=== PATIENT | female | born 1980 | race Caucasian/White ===

== ENCOUNTER → 2020-02-17 13:33 | Outpatient (CLI) | payer OTHER, SELFPAY ==
--- NOTE | 2020-02-17 | DI.MRI.S_ITS ---
BREAST MRI OF BOTH BREASTS: 02/17/2020 CLINICAL: DCIS Breast lump. Comparison is made to exams dated: 02/06/2020 ultrasound biopsy, 02/04/2020 mammogram, 08/08/2017 mammogram, and 02/04/2020 ultrasound - [facility]. Gadolinium contrast calibrated to patient weight was injected. MRI images were obtained. Bilateral background breast enhancement is minimal. TECHNIQUE: The patient was placed prone in a dedicated breast imaging coil. Precontrast axial STIR and 3D FLASH without fat saturation sequences were obtained. Both before and after bolus injection of contrast, sequential 1-minute axial 3D FLASH with fat saturation sequences for 3 time points, with subtraction images and maximum intensity projections (MIP's) generated. Delayed sagittal FLASH images with fat saturation were also obtained. Computer-aided detection, including computer algorithm analysis of MRI image data for lesion detection and characterization, pharmacokinetic analysis, with further physician review for interpretation, was performed. FINDINGS: Image quality: Excellent. There is minimal background parenchymal enhancement. Right breast: A retropectoral saline implant is present. No abnormal mass or suspicious focus of non-mass enhancement is seen in the right breast. Left breast: A retropectoral saline implant is present. A 2.7 x 2.1 x 1.7 cm rim enhancing mass with spiculated margin is seen in the left breast at the 10:30 position approximately 5 cm from the nipple (image 127 of series 7) corresponding to the prior ultrasound biopsy with associated biopsy clip. A satellite lesion is seen approximately 6 mm medial and posterior to the mass measuring 1.3 x 0.7 x 1.0 cm with solid enhancement (image 129 of series 7) that was not definitely seen on prior ultrasound. An additional irregular enhancing mass is seen in the left breast at the 10 o'clock position middle depth approximately 4 cm from the nipple measuring 1.0 x 0.7 cm (image 131 of series 7), corresponding to the prior ultrasound biopsy with associated biopsy clip. There is a segmental linear branching non-mass enhancement throughout the superior medial quadrant of the left breast extending to the nipple (for example on image 130 of series 7). Miscellaneous: Bilateral axillary lymph nodes are not significantly enlarged by cross-sectional imaging size criteria. The largest left axillary lymph nodes measure up to 8 mm in short axis diameter. No enlarged internal mammary lymph node is seen. The included portions of the upper abdomen and anterior chest wall demonstrate no acute abnormality. IMPRESSION: KNOWN BIOPSY PROVEN MALIGNANCY 1. A spiculated mass in the left breast at the 10:30 position 5 cm from the nipple with rim enhancement measures 2.7 x 2.1 x 1.7 cm with and associated biopsy clip, consistent with the known biopsy-proven malignancy. 2. A possible satellite lesion or separate mass is seen in the left breast slightly posteromedial to the larger mass with solid enhancement, measuring 1.7 x 0.7 x 1.0 cm. 3. An irregular mass in the left breast at the 10 o'clock position 4 cm from the nipple with solid enhancement measures 1.0 x 0.7 cm corresponds to the 2nd biopsy-proven malignancy. 4. Segmental heterogeneous non mass enhancement is also seen throughout the remainder of the superior medial quadrant of the left breast extending to the nipple. 5. No significantly enlarged axillary lymph node or signs of metastatic disease are seen. BIRADS 6 COMMENT: The imaging literature indicates that a negative contrast breast MRI examination has a high sensitivity and a moderate specificity for detecting and excluding invasive carcinomas to a detection threshold of 3-5 mm; nonetheless, appropriate clinical and mammographic follow-up are recommended. MRI is not sensitive for detecting DCIS (ductal carcinoma in situ) and may not detect large invasive neoplasms that show only minimal enhancement such as mucinous carcinoma. If there are suspicious calcifications or clinically worrisome palpable masses, then biopsy should still be considered. Invasive neoplasms can be hidden by co-existent and benign enhancement caused by mastitis, hormone therapy effects, radiation therapy, , and recent biopsy or surgery. False positive examinations can occur in a number of circumstances, including breasts that have recently been subject to invasive procedures and those that contain atypical ductal hyperplasia, hormonally stimulated glandular tissue, fat necrosis, or radial scars. This exam was interpreted at Station ID: [id number]. Electronically Signed By: Dillon wheeler/rolando:02/18/2020 10:07:20 ACR BI-RADS Category 6: Known biopsy proven malignancy 3346F
== END ==
PROVIDERS: PCP Family Medicine; Referring Provider Family Medicine; Visit Provider Family Medicine
DX: D05.12 Intraductal carcinoma in situ of left breast (principal); N63.22 Unspecified lump in the left breast, upper inner quadrant; Z98.82 Breast implant status
CPT/HCPCS: 77049; A9579

== ENCOUNTER → 2020-02-24 14:00 | Oncology outpatient (ONC) | payer OTHER, SELFPAY ==
--- NOTE | 2020-02-18 10:58 | ONC.MSW ---
Description: New Referral Navigation Reason for Referral: DCIS Activity: Called pt to confirm that we've received her referral, assessed medical status, acuity, and immediate needs. Discussed the role of navigation, and the ongoing availability of assistance, support, and resource referrals as needed. Confirmed her initial appt. time for 02/22 at 3:20.
--- NOTE | 2020-02-23 15:58 | P.CONONC_ITS ---
History of Present Illness - Data of Consult Patient: new to practice Consult date: 02/23/20 Requesting Physician: Roxann Funes DO Primary Care Provider: Roxann Funes DO - Consult Narrative Reason for consult: Left breast DCIS Narrative: Tricia Foster is a 39 year old female. She underwent bilateral breast augmentation surgery with saline implants about in 2012. 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 She called her [facility] care provider Dr. Roxann Funes at [facility]. The patient was referred to [facility] where she underwent diagnostic mammogram on 02/04/2020. The mammogram showed extremely dense parenchyma in the right breast with no discrete suspicious masses or distortion and no pleomorphic calcifications. In the left breast in region of patient's palpable abnormality, there was a superficial 7 mm oval mass. Same day left breast ultrasound showed that at 1030 and 4 cm from the nipple in the region of palpable abnormality there was a superficial hypoechoic parallel mass measuring 6 x 4 x 6 mm. There might be a tiny compressed echogenic hilum with probable vascular pedicle suggesting abnormal lymph node. More posteriorly along the chest wall at 1030 and 5 cm from the nipple, there was a hypoechoic ill-defined mass corresponding to the mammogram finding measuring 3.2 x 1.2 x 1.9 cm. No vascularity or shadowing. At 1000 and 4 cm from the nipple the more inferior and anterior, a hypoechoic mass was seen measuring 1.3 x 1 x 1.2 cm with mild vascularity. On 02/06/2020, patient underwent ultrasound-guided core biopsy. Pathology of the biopsy from left breast 10:30 mass showed ductal carcinoma in-situ, solid and micropapillary patterns, high nuclear grade, with central necrosis, without associated calcifications. ER receptor IHC pending. Biopsy from 10:00 mass showed ductal carcinoma in-situ, solid and micropapillary patterns, high nuclear grade, focal necrosis present, without calcifications, with foci suspicious for microinvasion. Again ER receptor IHC pending. On 02/17/2020, patient underwent breast MRI. It showed a spiculated mass in the left breast at the 10:30 position 5 cm from the nipple with ring enhancing measuring 2.7 x 2.1 x 1.7 cm, a possible satellite lesion or separate mass in the left breast slightly posterior medial to the larger mass with solid enhancement measuring 1.7 x 0.7 x 1.0 cm, and irregular mass in the left breast at the 10:00 position 4 cm from the nipple solid enhancement measuring 1.0 x 0.7 cm and segmental heterogeneous non-mass enhancement seen throughout the reminder of the superior medial quadrant of the left breast extending to the nipple. No significant enlarged axillary lymph node or signs of metastatic disease were noted. The right breast showed a retropectoral saline implant without abnormal mass or suspicious focus of non-mass enhancement. Patient was then referred to [facility] and was evaluated by Dr. Walker on 02/18/2020. Dr. Walker recommended either mastectomy or lumpectomy with radiation. Patient preferred lumpectomy but would like time to consider. During the interim, patient went to see Dr. Binh Glynn at [place], [place] for a second opinion. Per patient, it seemed that Dr. Glynn recommended strongly mastectomy. Clinically, patient does not have any other signs or symptoms. Patient has migraine headache all her life. She denies any shortness of breath or chest pain. She denies abdominal pain diarrhea or constipation. She denies any musculoskeletal pain. CC: Suhas Vallejo MD Patient reports pain?: No Home Medications and Allergies Home Medications Medication Instructions Recorded Confirmed Type fluoxetine 20 mg capsule 20 mg PO DAILY 02/18/20 02/23/20 History Allergies Allergy/AdvReac Type Severity Reaction Status Date / Time No Known Drug Allergies Allergy Unverified 02/18/20 11:45 Medical History - Medical, Surgical, Family History Surgical History: Surgical History (Last Updated 02/18/20 @ 11:47 by Shena Cardenas RN) Hx of appendectomy Hx of bilateral breast implants Family History: Family History (Last Updated 02/18/20 @ 11:47 by Shena Cardenas RN) Father Prostate cancer - Social History Smoking Status: Never smoker Substance Use Type: does not use Alcohol Intake: never Review of Systems All systems PM: reviewed and no additional remarkable complaints except as stated Exam Vital signs: 02/23/20 18:14 Last Vital Signs Pulse 68 02/23/20 16:40 Resp 16 02/23/20 16:40 BP 102/43 L 02/23/20 16:40 Pulse Ox 98 02/23/20 16:40 - Constitutional positive no acute distress, positive cooperative - Routine HEENT Exam Head: Present: normocephalic, atraumatic Eye: Present: EOMI, PERRL, normal accommodation. Absent: conjunctival icterus - Routine Neck Exam Present: supple. Absent: lymphadenopathy, thyromegaly - Routine Chest/Breast/Axilla Exam Axillae: Absent: lymphadenopathy, mass - Detailed Breast Exam left Palpation: Present: mass, tenderness, implant Mass type: Present: mobile, tenderness, firm Female Breast Image: 1 - Irregularly-shaped palpable nodules spanning an area around 5 x 6 cm with mild tenderness. right Inspection: Absent: erythema, swelling, peau d'orange, nipple discharge, area of retraction Palpation: Present: implant. Absent: mass - Routine Respiratory Exam Present: Clear to auscultation bilaterally. Absent: accessory muscle use, wheezes - Routine Cardiovascular Exam Present: RRR, S1, S2. Absent: murmur, gallop, rubs - Routine Abdominal Exam Present: soft. Absent: tenderness, distended Palpation/Percussion: Absent: hepatomegaly, splenomegaly - Routine Extremities Exam Absent: edema - Routine Neurological Exam Present: alert, oriented X3, CN II-XII intact. Absent: sensory deficit, motor deficit - Routine Psychiatric Exam Present: normal affect Results - Labs Pending Assessment and Plan (1) Ductal carcinoma in situ (DCIS) of left breast Debra is a 39-year-old female with previous bilateral breast augmentation with normal saline implant in 2012. Tricia self-palpated a lump in her left breast on 01/30/2020. Subsequently, she was diagnosed with left breast ductal carcinoma in- situ by ultrasound-guided biopsies of 2 foci on 02/06/2020. MRI breast on 02/17/2020 showed possible multiple foci of disease. The pathology from one of the foci suggests possible micro-invasion component. No enlarged lymph nodes in the axillae. I explained to the patient that decision about mastectomy versus lumpectomy usually depends on the surgeon's evaluation. She has extensive multiple lesions. Mastectomy could be an option. I encouraged the patient to follow-up with the surgeon for more discussion. From medical oncology point of view, the more important is the final surgical pathology after the surgery. If it is purely DCIS, she may need risk reduction endocrine therapy. If invasive component is noted, more aggressive therapy including possibly chemotherapy needs to be di scussed with the patient. The role of radiation therapy will also depend on the type of surgery and the final surgical pathology report. Patient voiced understanding. Tricia said that Dr. Glynn is going to call her today for more discussion. Given her young age, I would recommend genetic testing with [facility]. Plan: Follow up with surgery Petros Myriad test RTC in about 3-4 weeks
[2020-02-23 16:40] VITALS: BP 102/43; PULSE 68; RESP 16; O2SAT 98
--- NOTE | 2020-02-24 11:49 | ONC.SCHED ---
Per Tina with [employer]. They take care of the authorization for Petros but need clinical notes faxed to Edie Bueno who is our rep. the Fax number is [phone]. I will let the team know.
--- NOTE | 2020-03-02 15:04 | ONC.SCHED ---
Received call from [employer] requesting insurance company name to go with the ID provided with the kit. Also faxed requested clinicals to as requested.
--- NOTE | 2020-03-15 13:17 | ONC.SCHED ---
patient came 40 minutes late, Dr Vallejo unable to fit her in, patient request to fax [facility] results to her surgeon in [place] who she is seeing tomorrow . . . Jazmín and Dr Vallejo are going to have medical records fax the results to [place] physician
== END ==
PROVIDERS: PCP Family Medicine; Referring Provider Family Medicine; Visit Provider Internal Medicine Hematology & Oncology
DX: D05.12 Intraductal carcinoma in situ of left breast (principal)
CPT/HCPCS: 36415; 99204; 99214

== ENCOUNTER 2021-02-08 11:44 | Emergency (ER) | payer OTHER, SELFPAY ==
[2021-02-08 12:09] VITALS: BP 130/79; PULSE 78; RESP 15; TEMP 36.4; O2SAT 99; BMI 26.5
--- NOTE | 2021-02-08 14:18 | ED_ITS ---
HPI - General Adult General Chief complaint: Urogenital-Female Stated complaint: kidney pain Time Seen by Provider: 02/08/21 14:09 Source: patient Mode of arrival: Ambulatory Limitations: no limitations History of Present Illness HPI narrative: Patient is a 40-year-old female here for evaluation of right- sided kidney pain. She states she has had discomfort on the right side for the past couple weeks. No urinary symptoms. No vaginal bleeding. No diarrhea. No constipation. No rashes. No nausea vomiting. No abdominal pain. She is currently undergoing chemotherapy for breast cancer. States she has had kidney infections in the past. Related Data Home Medications Medication Instructions Recorded Confirmed fluoxetine 20 mg capsule 20 mg PO DAILY 02/18/20 02/23/20 Allergies Allergy/AdvReac Type Severity Reaction Status Date / Time No Known Drug Allergies Allergy Verified 02/08/21 12:09 Review of Systems Cardiovascular Cardiovascular: Reports system reviewed and no additional complaints, except as documented Respiratory Respiratory: Reports system reviewed and no additional complaints, except as documented Gastrointestinal Gastrointestinal: Reports as per HPI and Reports system reviewed and no additional complaints, except as documented Genitourinary Genitourinary: Reports system reviewed and no additional complaints, except as documented and Reports as per HPI Musculoskeletal Musculoskeletal: Reports system reviewed and no additional complaints, except as documented and Reports as per HPI Integumentary/Breasts Skin/Breast: Reports system reviewed and no additional complaints, except as documented and Reports as per HPI Neurologic Neurologic: Reports system reviewed and no additional complaints, except as d ocumented Hematologic/Lymphatic On Anticoagulants: No Allergic/Immunologic Allergic/Immunologic: Reports system reviewed and no additional complaints, except as documented Patient History Medical History DCIS (ductal carcinoma in situ) Ductal carcinoma in situ (DCIS) of left breast Surgical History (Updated 02/23/20 @ 15:58 by Suhas Vallejo MD) Hx of appendectomy Hx of bilateral breast implants Family History (Updated 02/18/20 @ 11:47 by Shena Cardenas RN) Father Prostate cancer Social History marital status: unknown household members: children Smoking Status: Never smoker alcohol intake: never substance use type: does not use Smoking Status: Never smoker alcohol intake frequency: holidays/special occasions only Substance Use Type: does not use Exam Initial Vital Signs Initial Vital Signs: Vital Signs Temperature 97.5 F L 02/08/21 12:09 Pulse Rate 78 02/08/21 12:09 Respiratory Rate 15 02/08/21 12:09 Blood Pressure 130/79 02/08/21 12:09 Pulse Oximetry 99 02/08/21 12:09 Const General: cooperative, healthy appearing and well developed HENLA Head: normal to inspection and normocephalic Neck Neck: normal visual inspection and no meningeal signs Resp Effort & Inspection: normal respiratory effort Auscultation: clear to auscultation bilaterally Cardio Rate: regular rate Rhythm: regular rhythm GI Inspection: normal to inspection Palpation: soft and No tender Back/Spine/Pelvis Back: No CVA tenderness Other: Patient does have tenderness with muscle fullness at the right lumbar region paraspinal. This does seem to be the area where she is having most discomfort. Skin General: no rashes or lesions noted Neuro General: patient alert and patient awake Extrem General: normal to inspection and capillary refill normal Psych Appearance: grossly normal and well kempt Course Vital Signs Vital signs: Vital Signs - 8 hr 02/08/21 12:09 Temperature 97.5 F L Pulse Rate 78 Respiratory Rate 15 Blood Pressure 130/79 Pulse Oximetry 99 Medical Decision Making Lab Data Lab results reviewed: Yes I reviewed the patient's lab results. Labs: Point of Care Testing Test Results Negative Urine Dip Bedside Urine Glucose Negative Bedside Urine Bilirubin - Negative Bedside Urine Ketone - Negative Urine Specific [place] 1.020 Bedside Urine Occult Blood - Negative Bedside Urine pH 6.0 Bedside Urine Protein - Negative Bedside Urine Urobilinogen - Negative Bedside Urine Nitrite - Negative Bedside Urine Leukocytes - Negative Esterase Point of care testing: Point of Care Testing Test Results Negative Urine Dip Bedside Urine Glucose Negative Bedside Urine Bilirubin - Negative Bedside Urine Ketone - Negative Urine Specific [place] 1.020 Bedside Urine Occult Blood - Negative Bedside Urine pH 6.0 Bedside Urine Protein - Negative Bedside Urine Urobilinogen - Negative Bedside Urine Nitrite - Negative Bedside Urine Leukocytes - Negative Esterase MDM Narrative Medical decision making narrative: Patient's labs are unremarkable. She has no skin rashes concerning for zoster. The area where she is having most discomfort there is a fullness in the paraspinal musculature. I do suspect that this is a muscle issue not a kidney issue. Her discomfort is lower than the level where her kidneys are located. No indication for antibiotics. No indication for radiologic studies. No indication for further laboratory studies. Patient was given return precautions and follow-up instructions. She expressed understanding and agreement. Discharge Plan Departure Patient Disposition: Home Clinical Impression: Acute flank pain Activity Restrictions/Additional Instructions: Recommend you continue to take all of your medications as directed. Urinalysis today is unremarkable. There is no signs of any infection. There is no indication for any antibiotics. Contact your primary doctor for a follow-up. Return to the emergency department for any new or worsening symptoms Prescriptions: No Action fluoxetine 20 mg capsule 20 mg PO DAILY RF: 0 Referrals: Roxann Funes DO [Primary Care Provider] -
[2021-02-08 14:23] VITALS: BP 138/82; PULSE 72; RESP 16; O2SAT 99
== END 2021-02-08 14:24 | disposition home or self-care (01) ==
PROVIDERS: Emergency Provider Emergency Medicine; PCP Family Medicine
DX: R10.9 Unspecified abdominal pain (principal)
CPT/HCPCS: 81003; 81025; 99282